=== PATIENT | male | born 1950 | race Hispanic/Latino ===

== ENCOUNTER 2016-07-07 10:32 | Emergency (ER) | payer MEDICARE ==
[2016-07-07 10:46] VITALS: BMI 25.0
[2016-07-07 10:49] VITALS: RESP 16
[2016-07-07] MEDS ORDERED: Sodium Chloride 0.9% 1,000 ML IV STA (11:25)
--- NOTE | 2016-07-07 11:25 | ED PDOC ---
Arrival/HPI - General Chief Complaint: Fever Time Seen by Provider: 07/07/16 11:12 Historian: Patient - History of Present Illness Narrative History of Present Illness (Text): 07/07/16 11:21 65 year old male presents to the emergency department with dry cough, subjective fever, and body aches for the past three days. No shortness of breath , chest pain, abdominal pain, nausea, vomiting. No other complaints at this time. PMD: Dr. Mandujano Time/Duration: < week (x 3 days) Symptom Onset: Gradual Symptom Course: Unchanged Modifying Factors (Text): None Associated Symptoms (Text): None Past Medical History - Provider Review Nursing Documentation Reviewed: Yes - Infectious Disease Hx of Infectious Diseases: None - Tetanus Immunization Tetanus Immunization: Unknown - Cardiac Hx Cardiac Disorders: Yes (VALVULAR HEART DSE.) Hx Hypertension: Yes - Pulmonary Hx Respiratory Disorders: No - Neurological Hx Neurological Disorder: No - HEENT Hx HEENT Disorder: No - Renal Hx Renal Disorder: No - Endocrine/Metabolic Hx Endocrine Disorders: No - Hematological/Oncological Hx Blood Disorders: No - Integumentary Hx Dermatological Disorder: No - Musculoskeletal/Rheumatological Hx Falls: No - Gastrointestinal Hx Gastrointestinal Disorders: Yes Hx Gastroesophageal Reflux: Yes - Genitourinary/Gynecological Hx Genitourinary Disorders: Yes Hx Urinary Tract Infection: Yes - Psychiatric Hx Psychophysiologic Disorder: Yes Hx Depression: Yes Hx Emotional Abuse: No Hx Physical Abuse: No Hx Substance Use: No - Past Surgical History Past Surgical History: Unable to Obtain - Suicidal Assessment Feels Threatened In Home Enviroment: No Family/Social History - Physician Review Nursing Documentation Reviewed: Yes Family/Social History: Unknown Family HX Smoking Status: Never Smoked Hx Alcohol Use: No Hx Substance Use: No Hx Substance Use Treatment: No Allergies/Home Meds Allergies/Adverse Reactions: Allergies No Known Allergies Allergy (Verified 07/07/16 10:46) Home Medications: Home Meds Medication Instructions Recorded Confirmed Bioflav,Lemon/Vit Bcomp,C 1 tab PO TID 07/07/16 07/07/16 [Lipo-Flavonoid Plus Caplet] Review of Systems - Physician Review All systems were reviewed & negative as marked: Yes Physical Exam - Physical Exam Narrative Physical Exam (Text): - Review of Systems Constitutional: Fevers (subjective) absent: Fatigue, Weight Change, Eyes: Normal ENT: Normal Respiratory: Cough absent: SOB, Sputum Cardiovascular: Normal absent: Chest pain, Palpitations, Syncope Gastrointestinal: Normal absent: Abdominal pain, Diarrhea, Nausea, Vomiting Genitourinary: Normal. absent: Dysuria, Frequency, Hematuria Musculoskeletal: Arthralgias absent: Back Pain, Neck Pain Skin: Normal Neurological: Normal absent: Focal Weakness Endocrine: Normal Hemo/Lymphatic: Normal Psychiatric: Normal - Physical exam Patient appears age appropriate, speaking full sentences without difficulty - Systems Exam Head: Present: Atraumatic, Normocephalic Pupils: Present: PERRL Extraocular Muscles: Present: EOMI Conjunctiva: Present: Normal Mouth: Present: Moist Mucous Membranes Neck: Present: Normal Range of Motion. No: MIDLINE TENDERNESS, Paraspinal Tenderness Respiratory/Chest: Present: Clear to Auscultation, Good Air Exchange. No: Respiratory Distress, Accessory Muscle Use, Tachypneic Cardiovascular: Present: Regular Rate and Rhythm, Normal S1, S2, Peripheral Pulses Present. No: Murmurs Abdomen: Present: Normal Bowel Sounds, No: Tenderness, Peritoneal Signs, Rebound, Guarding, Distention Back: Present: Normal Inspection. No: Midline Tenderness, Paraspinal Tenderness Upper Extremity: Present: Normal Inspection. No: Cyanosis, Edema Lower Extremity: Present: Normal Inspection. No: Edema Neurological: Present: GCS=15, Speech Normal, cranial nerves II through XII fully intact with no cerebellar abnormality, neuro-sensory fully intact. No focal neurological deficits. Skin: Present: Warm, Dry, Normal Color. No: Rashes Lymphatic: Present: OX3, NI, NC Psychiatric: Present: Alert, Oriented x 3, Normal Insight, Normal Concentration. Vital Signs Reviewed: Yes Vital Signs Temp Pulse Resp BP Pulse Ox 07/07/16 10:46 100.9 F H 87 16 122/75 97 Temperature: Afebrile Blood Pressure: Normal Pulse: Regular Respiratory Rate: Normal Appearance: Positive for: Well-Appearing, Non-Toxic, Comfortable Pain Distress: None Mental Status: Positive for: Alert and Oriented X 3 - Systems Exam Pharnyx: Present: Normal, Other (no pain with hyoid manipulation). No: ERYTHEMA , EXUDATE, TONSILS ENLARGED, Peritonsilar Swelling, Uvular Deviation, Muffled/ Hoarse Voice, Strider Neck: No: Meningeal Signs, MIDLINE TENDERNESS, Paraspinal Tenderness Medical Decision Making ED Course and Treatment: Impression: 65 year old male presents to the emergency department with dry cough , subjective fever, and body aches for the past 3 days. On physical exam, patient has no acute findings. Differential Diagnosis included but are not limited to: Influenza vs PNA Plan: -- Chest x-ray -- Tylenol -- IV fluids -- Labs -- Reassess and disposition Prior Visits: Notes and results from previous visits were reviewed. Patient was admitted on for pleuritic chest pain and had negative enzymes x 3. Progress Notes: 07/07/16 13:32 on reevaluation, pt states he feels better. Denies complaints. States he feels comfortable being dc'd home with outpatient f/u Influenza (+) - Lab Interpretations Lab Results: 07/07/16 11:15 07/07/16 11:15 Lab Results 07/07/16 13:00: Urine Color Yellow, Urine Appearance Clear, Urine pH 7.0, Ur Specific [place] 1.020, Urine Protein Negative, Urine Glucose (UA) Negative, Urine Ketones Trace H, Urine Blood Negative, Urine Nitrate Negative, Urine Bilirubin Negative, Urine Urobilinogen 0.2, Ur Leukocyte Esterase Negative 07/07/16 11:26: Influenza Typ A,B (EIA) Pos for influenza b H 07/07/16 11:15: WBC 4.5 D, RBC 4.69, Hgb 14.4, Hct 43.4, MCV 92.5, MCH 30.7, MCHC 33.2, RDW 12.7, Plt Count 183, MPV 10.4, Gran % 70.8 H, Lymph % (Auto) 16.6 L, [place] % (Auto) 12.4 H, Eos % (Auto) 0.0 L, Baso % (Auto) 0.2, Gran # 3.21 , Lymph # 0.8 L, [place] # 0.6, Eos # 0.0, Baso # 0.01, PT 11.6, INR 1.07, APTT 28.9, pO2 45, VBG pH 7.37, VBG pCO2 50.0, VBG HCO3 28.9 H, VBG Total CO2 30.4 H , VBG O2 Sat (Calc) 81.5 H, VBG Base Excess 2.7 H, VBG Potassium 4.9, Glucose 93 , Lactate 0.9, FiO2 21.0, Sodium 136.0, Potassium 4.1, Chloride 101.0, Carbon Dioxide 28, Anion Gap 13, BUN 11, Creatinine 1.0, Est GFR ( Amer) > 60, Est GFR (Non-Af Amer) > 60, Random Glucose 94, Calcium 9.1, Total Bilirubin 0.4 , AST 25, ALT 32, Alkaline Phosphatase 105, Total Protein 7.4, Albumin 4.3, Globulin 3.1, Albumin/Globulin Ratio 1.4, Venous Blood Potassium 4.9 - RAD Interpretation Radiology Orders: 07/07/16 11:25 CHEST PORTABLE [RAD] Stat - Medication Orders Current Medication Orders: Discontinued Medications Sodium Chloride (Sodium Chloride 0.9%) 1,000 mls @ 1,000 mls/hr IV .Q1H STA Stop: 07/07/16 12:24 Last Admin: 07/07/16 11:40 Dose: 1,000 MLS/HR eMAR Start Stop Document 07/07/16 11:40 SE (Rec: 07/07/16 11:40 SE [id number]) Intravenous Solution Start Date 07/07/16 Start Time 11:40 Ketorolac Tromethamine (Toradol) 15 mg IVP STAT STA Stop: 07/07/16 11:57 Last Admin: 07/07/16 12:25 Dose: 15 MG IVP Administration Document 07/07/16 12:25 SE (Rec: 07/07/16 12:25 SE [id number]) Charges for Administration # of IVP Administrations 1 - Scribe Statement The provider has reviewed the documentation as recorded by the Adam Ramírez Provider Scribe Attestation: All medical record entries made by the Adam were at my direction and personally dictated by me. I have reviewed the chart and agree that the record accurately reflects my personal performance of the history, physical exam, medical decision making, and the department course for this patient. I have also personally directed, reviewed, and agree with the discharge instructions and disposition. Disposition/Present on Arrival - Present on Arrival Any Indicators Present on Arrival: No History of DVT/PE: No History of Uncontrolled Diabetes: No Urinary Catheter: No History of Decub. Ulcer: No History Surgical Site Infection Following: None - Disposition Have Diagnosis and Disposition been Completed?: Yes Diagnosis: Influenza Disposition: HOME/ ROUTINE Disposition Time: 13:36 Patient Plan: Discharge Condition: GOOD Discharge Instructions (ExitCare): Influenza (ED) Additional Instructions: PLEASE FOLLOW UP WITH YOUR PRIMARY PHYSICIAN IN 1-2 DAYS RETURN TO THE ER RIGHT AWAY FOR NEW OR WORSENING PROBLEMS OR IF YOU CANNOT FOLLOW UP INSTRUCTED Prescriptions: Oseltamivir [Tamiflu] 75 mg PO BID #10 cap Forms: WORK NOTE
[2016-07-07 11:46] LABS: ADD MANUAL DIFF? NO
[2016-07-07 11:53] LABS: VENOUS BLOOD GAS BASE EXCESS 2.7 mmol/L (0.0-2.0); VENOUS BLOOD PH 7.37 (7.32-7.43)
[2016-07-07 11:59] LABS: BASO # 0.01 K/mm3 (0.0-2.0); BASO % 0.2 % (0.0-3.0); GRAN # 3.21 (1.4-6.5); GRAN % 70.8 % (50.0-68.0); HEMATOCRIT 43.4 % (42.0-52.0); LYMPH # 0.8 (1.2-3.4); LYMPH % 16.6 % (22.0-35.0); MEAN CELL VOLUME 92.5 fL (80.0-105.0); MEAN CORPUSCULAR HEMOGLOBIN 30.7 pg (25.0-35.0); MEAN CORPUSCULAR HGB CONC 33.2 g/dl (31.0-37.0); MEAN PLATELET VOLUME 10.4 fl (7.0-11.0); MONO # 0.6 (0.1-0.6); MONO % 12.4 % (1.0-6.0); PLATELET COUNT 183 10^3/uL (120.0-450.0); RED CELL DISTRIBUTION WIDTH 12.7 % (11.5-14.5); WHITE BLOOD COUNT 4.5 10^3/ul (4.5-11.0)
[2016-07-07 12:01] LABS: ALB/GLOB RATIO 1.4 (1.1-1.8); ALKALINE PHOSPHATASE 105 U/L (38-133); ALT/SGPT 32 U/L (7-56); AST/SGOT 25 U/L (15-59); BILIRUBIN,TOTAL 0.4 mg/dL (0.2-1.3); BLOOD UREA NITROGEN 11 mg/dL (7-21); CALCIUM 9.1 mg/dL (8.4-10.5); CARBON DIOXIDE 28 mmol/L (21-33); CHLORIDE 99 mmol/L (95-110); GFR AFRICAN-AMERICAN > 60; GLUCOSE,RANDOM 94 mg/dL (70-110); POTASSIUM 4.1 mmol/L (3.6-5.0); SODIUM 136 mmol/L (132-148); TOTAL PROTEIN 7.4 g/dL (5.8-8.3)
[2016-07-07 12:04] LABS: INR 1.07 (0.93-1.08); PARTIAL THROMBOPLASTIN TIME 28.9 Seconds (23.7-30.8)
--- NOTE | 2016-07-07 12:06 | RAD ---
HISTORY: Cough COMPARISON: 01/23/2014 FINDINGS: LUNGS: The lungs are hyperinflated and there is peribronchial thickening with chronic changes in both lungs. There is no focal consolidation. PLEURA: No significant pleural effusion identified, no pneumothorax apparent. CARDIOVASCULAR: The heart is normal in size. Atherosclerotic aortic arch calcifications are present. . OSSEOUS STRUCTURES: No significant abnormalities. VISUALIZED UPPER ABDOMEN: Normal. OTHER FINDINGS: None. IMPRESSION: COPD. No active pulmonary disease.
[2016-07-07 13:14] LABS: URINE BILIRUBIN NEGATIVE (NEGATIVE); URINE BLOOD NEGATIVE (NEGATIVE); URINE GLUCOSE (UA) NEGATIVE (NEGATIVE); URINE KETONE TRACE mg/dL (NEGATIVE); URINE LEUKOCYTE ESTERASE NEGATIVE Leu/uL (NEGATIVE); URINE PROTEIN NEGATIVE mg/dL (<30 mg/dL); URINE UROBILINOGEN 0.2 E.U./dL (<1 E.U./dL)
[2016-07-07 13:17] LABS: URINE APPEARANCE CLEAR (CLEAR); URINE COLOR YELLOW (YELLOW)
[2016-07-07 13:46] VITALS: BP 111/66; PULSE 85; O2SAT 98
[2016-07-07 13:49] VITALS: TEMP 98.3
== END 2016-07-07 14:02 | disposition home or self-care (01) ==
LOC: ED 10:32
DX: J11.1 Influenza due to unidentified influenza virus with other respiratory manifestations (principal)
CPT/HCPCS: 71010; 80053; 81003; 82803; 85025; 85610; 85730; 87040; 87086; 87804; 96374; 99284; J1885; J7040

== ENCOUNTER 2017-01-19 06:26 | Observation (INO) | payer MEDICARE ==
[2017-01-19] MEDS ORDERED: Lidocaine 2% Inj (20ml) ONE (06:52)
[2017-01-19] MEDS ORDERED: Iodixanol 320 MG/ML 100 ML BOTTLE IV ONE (06:53)
[2017-01-19] MEDS ORDERED: Phenylephrine 10 mg/ml Inj ONE (06:53)
[2017-01-19] MEDS ORDERED: Iodixanol 320 MG/ML 200 ML BOTTLE IV ONE (06:53)
[2017-01-19] MEDS ORDERED: Nitroglycerin 50mg in D5W 0 MG/0 ML BOTTLE IV ONE (06:53)
[2017-01-19] MEDS ORDERED: Iohexol 350mgl/ml 50 ML ONE (06:53)
[2017-01-19] MEDS ORDERED: Midazolam 2 MG/2 ML VIAL ONE ×3 (07:08→08:46)
[2017-01-19 07:27] LABS: BASO # 0.03 K/mm3 (0.0-2.0); BASO % 0.6 % (0.0-3.0); EOS # 0.1 (0.0-0.7); GRAN # 2.93 (1.4-6.5); GRAN % 59.3 % (50.0-68.0); HEMATOCRIT 41.6 % (42.0-52.0); LYMPH # 1.5 (1.2-3.4); LYMPH % 30.8 % (22.0-35.0); MEAN CELL VOLUME 92.7 fl (80.0-105.0); MEAN CORPUSCULAR HEMOGLOBIN 30.7 pg (25.0-35.0); MEAN CORPUSCULAR HGB CONC 33.2 g/dl (31.0-37.0); MEAN PLATELET VOLUME 10.4 fl (7.0-11.0); MONO # 0.4 (0.1-0.6); MONO % 8.3 % (1.0-6.0); RED CELL DISTRIBUTION WIDTH 12.5 % (11.5-14.5); WHITE BLOOD COUNT 4.9 10^3/ul (4.5-11.0)
[2017-01-19 07:38] LABS: BLOOD UREA NITROGEN 18 mg/dL (7-21); CALCIUM 8.9 mg/dL (8.4-10.5); CARBON DIOXIDE 30 mmol/L (21-33); CHLORIDE 104 mmol/L (98-107); CHOLESTEROL 214 mg/dL (130-200); GFR AFRICAN-AMERICAN > 60; GLUCOSE,RANDOM 92 mg/dL (70-110); POTASSIUM 3.9 mmol/L (3.6-5.0); SODIUM 142 mmol/L (132-148)
[2017-01-19 07:42] VITALS: BMI 24.6
[2017-01-19 07:45] LABS: INR 1.03 (0.93-1.08); PARTIAL THROMBOPLASTIN TIME 28.3 Seconds (23.7-30.8)
[2017-01-19] MEDS ORDERED: Eptifibatide 20 mg/10mL Inj IVP ONE (08:41)
[2017-01-19] MEDS ORDERED: Sodium Chloride 0.9% 1,000 ML IV SCH (09:30)
--- NOTE | 2017-01-19 10:33 | CP.PCM.HP ---
History of Present Illness - History of Present Illness History of Present Illness: 66 year old male with a PMH of valvular heart disease, carpal tunnel syndrome, arthritis, lower back pain, and tinnitus was found to have an abnormal stress test on 01/13/[address] Painter office during preoperative clearance for carpal tunnel surgery. He was electively catheterized this morning, found to have 80% stenosis in his LAD, and subsequently had a drug eluting stent placed. He states he feels a little dopey along with some numbness and tingling in his wrists bilaterally due to his carpal tunnel. He denies any SOB, CP, palpitations, abdominal pain, lightheadedness, dizziness, fever, chills, nausea , vomiting or any other complaints at this time. PMHx: arthritis in b/l ankles and b/l wrists, back pain w/ pinched nerve and swollen disk, carpal tunnel b/l, tinnitus, valvular heart disease since childhood Medications: Bioflavin; VitD 2000U SurgHx: throat surgery for snoring issues, does not recall when SocialHx: worked carrying heavy material for the [employer] denies tobacco, alcohol or drug use FamilyHx: Mother has CHF, hepatitis, and DM; Father had TB Allergies: NKDA Present on Admission - Present on Admission Any Indicators Present on Admission: No Review of Systems - Constitutional Constitutional: absent: Chills, Fever, Headache - EENT Eyes: absent: Change in Vision Nose/Mouth/Throat: absent: Nasal Discharge - Cardiovascular Cardiovascular: absent: Chest Pain, Dyspnea, Palpitations, Radiating Pain, Rapid Heart Rate - Respiratory Respiratory: absent: Cough, Dyspnea, Dyspnea on Exertion, Chest Congestion - Gastrointestinal Gastrointestinal: absent: Abdominal Pain, Bloating, Nausea - Genitourinary Genitourinary: absent: Difficulty Urinating - Musculoskeletal Musculoskeletal: Numbness - Integumentary Integumentary: absent: Rash, Sores - Neurological Additional comments: Right ear ringing Past Patient History - Infectious Disease Hx of Infectious Diseases: None - Tetanus Immunizations Tetanus Immunization: Unknown - Past Social History Smoking Status: Never Smoked - CARDIAC Hx Pacemaker: No - PULMONARY Hx Respiratory Disorders: No - NEUROLOGICAL Hx Paralysis: No - HEENT Hx HEENT Problems: No - RENAL Hx Chronic Kidney Disease: No - ENDOCRINE/METABOLIC Hx Endocrine Disorders: No - HEMATOLOGICAL/ONCOLOGICAL Hx Blood Transfusions: No - INTEGUMENTARY Hx Dermatological Problems: No - MUSCULOSKELETAL/RHEUMATOLOGICAL Hx Musculoskeletal Disorders: No - GASTROINTESTINAL Hx Gastrointestinal Disorders: Yes Hx Gastroesophageal Reflux: Yes - GENITOURINARY/GYNECOLOGICAL Hx Genitourinary Disorders: Yes Hx Urinary Tract Infection: Yes - PSYCHIATRIC Hx Emotional Abuse: No Hx Physical Abuse: No Hx Substance Use: No - SURGICAL HISTORY Hx Surgeries: Yes ("throat surgery") - ANESTHESIA Hx Anesthesia Reactions: No Meds Home Medications: Home Medication List Medication Instructions Recorded Confirmed Type Aspirin [Ecotrin] 81 mg PO DAILY #30 tabec 01/20/17 Rx Methylprednisolone [Medrol Dose See Taper PO DAILY 6 Days #21 mg 01/20/17 Rx Pack (21 tabs)] Prasugrel [Effient] 10 mg PO DAILY #30 tab 01/20/17 Rx Rosuvastatin Calcium [Crestor] 10 mg PO HS 30 Days #30 tab 01/20/17 Rx Allergies/Adverse Reactions: Allergies Allergy/AdvReac Type Severity Reaction Status Date / Time clopidogrel [From Plavix] Allergy RASH Verified 01/20/17 13:43 Physical Exam - Constitutional Appears: Non-toxic, No Acute Distress - Head Exam Head Exam: ATRAUMATIC, NORMAL INSPECTION, NORMOCEPHALIC - Eye Exam Eye Exam: EOMI, Normal appearance, PERRL - ENT Exam ENT Exam: Mucous Membranes Moist, Normal Exam - Neck Exam Neck exam: Positive for: Normal Inspection. Negative for: Lymphadenopathy, Thyromegaly - Respiratory Exam Respiratory Exam: Clear to Auscultation Bilateral, NORMAL BREATHING PATTERN - Cardiovascular Exam Cardiovascular Exam: REGULAR RHYTHM, +S1, +S2 - GI/Abdominal Exam GI & Abdominal Exam: Normal Bowel Sounds. absent: Distended - Extremities Exam Extremities exam: Positive for: pedal pulses present - Neurological Exam Neurological exam: Alert, Oriented x3 Results - Vital Signs Recent Vital Signs: Last Vital Signs Temp 98 F 01/19/17 09:21 Pulse 74 01/19/17 10:21 Resp 19 01/19/17 10:21 BP 129/76 01/19/17 10:21 Pulse Ox 98 01/19/17 07:20 - Labs Result Diagrams: 01/20/17 06:00 01/20/17 06:59 Labs: Laboratory Results - last 24 hr 01/19/17 01/19/17 01/19/17 07:22 07:22 07:22 WBC 4.9 RBC 4.49 Hgb 13.8 L Hct 41.6 L MCV 92.7 MCH 30.7 MCHC 33.2 RDW 12.5 Plt Count 211 MPV 10.4 Gran % 59.3 Lymph % (Auto) 30.8 [place] % (Auto) 8.3 H Eos % (Auto) 1.0 L Baso % (Auto) 0.6 Gran # 2.93 Lymph # 1.5 [place] # 0.4 Eos # 0.1 Baso # 0.03 PT 11.1 INR 1.03 APTT 28.3 Sodium 142 Potassium 3.9 Chloride 104 Carbon Dioxide 30 Anion Gap 12 BUN 18 Creatinine 1.0 Est GFR ( Amer) > 60 Est GFR (Non-Af Amer) > 60 Random Glucose 92 Calcium 8.9 Triglycerides 61 Cholesterol 214 H LDL Cholesterol Direct 135 H HDL Cholesterol 55 Blood Type Blood Type Confirm Antibody Screen BBK History Checked 01/19/17 01/19/17 07:22 07:56 WBC RBC Hgb Hct MCV MCH MCHC RDW Plt Count MPV Gran % Lymph % (Auto) [place] % (Auto) Eos % (Auto) Baso % (Auto) Gran # Lymph # [place] # Eos # Baso # PT INR APTT Sodium Potassium Chloride Carbon Dioxide Anion Gap BUN Creatinine Est GFR ( Amer) Est GFR (Non-Af Amer) Random Glucose Calcium Triglycerides Cholesterol LDL Cholesterol Direct HDL Cholesterol Blood Type A POSITIVE Blood Type Confirm A POSITIVE Antibody Screen Negative BBK History Checked No verified bt Assessment & Plan - Assessment and Plan (Free Text) Assessment: 66 year old male with a PMH of valvular heart disease, carpal tunnel syndrome, arthritis, lower back pain s/p cardiac cath with drug eluting stent placement in the LAD. Patient is being monitored. Plan: 1. Stent Placement - drug eluting stent LAD - BP: 110/70, patient stable, afebrile - EKG ordered, pending official read - continue to monitor vitals - Started on Plavix - started on Lipitor - Started on Aspirin - NS@100 - monitor distal pulses - started on heart healthy diet
--- NOTE | 2017-01-19 10:47 | CARDCATH ---
CARDIAC CATHETERIZATION AND PERCUTANEOUS TRANSLUMINAL CORONARY ANGIOPLASTY HISTORY: The patient is a 66-year-old male who suffers from hypertension and hypercholesterolemia who presents for preop clearance. He complains of stress test intermittently. A stress test revealed ischemic areas. Cardiac catheterization was recommended. PROCEDURE: Left heart catheterization with coronary arteriography and left ventriculogram followed by percutaneous transluminal coronary angioplasty and stent of an left anterior descending. The right femoral artery was cannulated with 6-[place] sheath. There were no complications. The findings on catheterization revealed a left ventricle that contracted normally. Estimated ejection fraction of 60%. The patient had a right dominant circulation. The RCA was selectively cannulized and found to be unremarkable. The left main artery was a short vessel and unremarkable. The circumflex artery and obtuse marginal branches revealed intimal irregularities without significant stenoses. The LAD was a long vessel that wrapped around the apex of the heart. The LAD revealed an eccentric 80% stenoses in the midportion at the takeoff of the diagonal vessel. This was best seen in the HENRIQUEZ caudal view. The diagonal vessels revealed intimal irregularities without significant stenoses. The patient was started on intravenous Angiomax and given two doses of IV Integrilin bolus. The guiding catheter was placed in the ostium of the left main artery and 0.014 ATW wire was used to cross the lesion. A 3.5 x 9 mm drug-eluting stent was placed and deployed at 14 atmospheres of pressure in the short coronary lesion. Repeat coronary arteriography revealed an excellent result with no residual stenosis in CHRISTEN-3 flow. The patient tolerated the procedure well. Angio-Seal was used to close the femoral artery site. In summary, the procedure was successful PTCA and stent of an eccentric 80% stenosis of the mid LAD. Cardiac catheterization revealed single-vessel CAD of the LAD. Normal LV function was noted. Given these findings, the patient will need to remain on aspirin indefinitely and Plavix for at least a year and undergo a strict cardiac risk-reduction program. Moody Gutierrez MD
--- NOTE | 2017-01-19 19:56 | CARD ---
APPROVED REPORT EKG Measurement Heart [id number] <Conclusion> Normal sinus rhythm Left axis deviation Nonspecific intraventricular conduction delay Abnormal ECG
[2017-01-19] MEDS ORDERED: DiphenhydrAMINE 50 mg/ml Inj IVP STA (20:15)
[2017-01-19] MEDS ORDERED: DiphenhydrAMINE 50 mg/ml Inj IVP PRN (23:16)
[2017-01-19] MEDS: Sodium Chloride 0.9% 1,000 ML IV SCH (23:59)
[2017-01-20] MEDS ORDERED: Sodium Chloride 0.9% 500 ML IV STA (00:15)
[2017-01-20 00:16] LABS: HEMATOCRIT 41.2 % (42.0-52.0); MEAN CORPUSCULAR HGB CONC 33.7 g/dl (31.0-37.0); MEAN PLATELET VOLUME 10.4 fl (7.0-11.0); RED CELL DISTRIBUTION WIDTH 12.6 % (11.5-14.5); WHITE BLOOD COUNT 11.7 10^3/ul (4.5-11.0)
[2017-01-20] MEDS ORDERED: Vancomycin 1gm in NS 250ml 1 GM/250 ML BAG IVPB STA (00:24)
[2017-01-20 00:27] LABS: ALB/GLOB RATIO 1.5 (1.1-1.8); ALKALINE PHOSPHATASE 89 U/L (38-126); ALT/SGPT 37 U/L (7-56); AST/SGOT 21 U/L (17-59); BILIRUBIN,TOTAL 0.9 mg/dL (0.2-1.3); BLOOD UREA NITROGEN 18 mg/dL (7-21); CALCIUM 8.7 mg/dL (8.4-10.5); CARBON DIOXIDE 27 mmol/L (21-33); CHLORIDE 106 mmol/L (95-110); GFR AFRICAN-AMERICAN > 60; GLUCOSE,RANDOM 105 mg/dL (70-110); POTASSIUM 3.8 mmol/L (3.6-5.0); SODIUM 137 mmol/L (132-148); TOTAL PROTEIN 5.7 g/dL (5.8-8.3)
--- NOTE | 2017-01-20 00:46 | CP.PCM.CON ---
History of Present Illness - History of Present Illness History of Present Illness: ICU Consult Note for Mukesh Sanchez PGY2 Reason for consult: Allergic reaction This is a 66Y M with PMH arthritis, carpal tunnel, spinal stenosis, valvular heart disease (since childhood) who was admitted for elective cardiac cath. Patient had drug eluting stent placed in LAD this am without complications. EF was noted to be 60%. About 12 hours after the cardiac cath, patient developed diffuse rash and fever of 101.0. Patient was given Motrin and Benadryl. Rapid response was later called for BP of 99/61. Patient was awake and alert. He was speaking full sentences at time of examination. He denies CP, SOB, wheezing, swelling of tongue, trouble swallowing, chills, diarrhea, numbness/tingling or vision changes. Patient reports that he did feel nauseous and was itchy from the rash. Repeat BP was 106/70. PMH: arthritis, carpal tunnel, spinal stenosis, valvular heart disease (since childhood) PSH: throat surgery Home meds: As per MAR All: Tylenol? SH: Denies EtOH, drug or tobacco use Review of Systems - Review of Systems All systems: reviewed and no additional remarkable complaints except Review of Systems: + rash, fever and nausea Past Patient History - Infectious Disease Hx of Infectious Diseases: None - Tetanus Immunizations Tetanus Immunization: Unknown - Past Social History Smoking Status: Never Smoked Alcohol: None Drugs: Denies - CARDIAC Hx Pacemaker: No - PULMONARY Hx Respiratory Disorders: No - NEUROLOGICAL Hx Paralysis: No - HEENT Hx HEENT Problems: No - RENAL Hx Chronic Kidney Disease: No - ENDOCRINE/METABOLIC Hx Endocrine Disorders: No - HEMATOLOGICAL/ONCOLOGICAL Hx Blood Transfusions: No - INTEGUMENTARY Hx Dermatological Problems: No - MUSCULOSKELETAL/RHEUMATOLOGICAL Hx Musculoskeletal Disorders: No - GASTROINTESTINAL Hx Gastrointestinal Disorders: Yes Hx Gastroesophageal Reflux: Yes - GENITOURINARY/GYNECOLOGICAL Hx Genitourinary Disorders: Yes Hx Urinary Tract Infection: Yes - PSYCHIATRIC Hx Emotional Abuse: No Hx Physical Abuse: No Hx Substance Use: No - SURGICAL HISTORY Hx Surgeries: Yes ("throat surgery") - ANESTHESIA Hx Anesthesia Reactions: No Meds Allergies/Adverse Reactions: Allergies Allergy/AdvReac Type Severity Reaction Status Date / Time No Known Allergies Allergy Verified 07/07/16 10:46 - Medications Medications: Current Medications Aspirin (Ecotrin) 81 mg PO DAILY [facility] Last Admin: 01/19/17 09:44 Dose: Not Given Atorvastatin Calcium (Lipitor) 40 mg PO DIN [facility] Last Admin: 01/19/17 17:58 Dose: 40 mg Clopidogrel Bisulfate (Plavix) 75 mg PO DAILY [facility] Last Admin: 01/19/17 09:44 Dose: Not Given Diphenhydramine HCl (Benadryl) 50 mg IVP Q4H PRN PRN Reason: Allergy symptoms Last Admin: 01/20/17 00:25 Dose: 50 mg Sodium Chloride (Sodium Chloride 0.9%) 1,000 mls @ 125 mls/hr IV .Q8H [facility] Last Admin: 01/19/17 23:59 Dose: 125 mls/hr Sodium Chloride (Sodium Chloride 0.9%) 500 mls @ 999 mls/hr IV .Q31M [facility] Stop: 01/20/17 00:45 Last Admin: 01/20/17 00:10 Dose: 999 mls/hr Vancomycin HCl (Vancomycin 1gm) 1 gm in 250 mls @ 167 mls/hr IVPB STAT STA PRN Reason: Protocol Stop: 01/20/17 01:53 Ibuprofen (Motrin Tab) 400 mg PO Q6H PRN PRN Reason: Fever >100.4 F Physical Exam - Constitutional Appears: No Acute Distress - Head Exam Head Exam: ATRAUMATIC, NORMAL INSPECTION, NORMOCEPHALIC - Eye Exam Eye Exam: Normal appearance, PERRL Pupil Exam: NORMAL ACCOMODATION, PERRL - ENT Exam ENT Exam: Mucous Membranes Moist - Respiratory Exam Respiratory Exam: Clear to Auscultation Bilateral, NORMAL BREATHING PATTERN. absent: Rales, Rhonchi, Wheezes - Cardiovascular Exam Cardiovascular Exam: REGULAR RHYTHM, +S1, +S2. absent: Gallop, Rubs, Systolic Murmur - GI/Abdominal Exam GI & Abdominal Exam: Normal Bowel Sounds, Soft. absent: Rebound, Rigid, Tenderness - Extremities Exam Extremities exam: Positive for: normal inspection. Negative for: calf tenderness, pedal edema Additional comments: R femoral cath site clean and dry- no hematoma or bleeding noted - Neurological Exam Neurological exam: Alert, CN II-XII Intact, Oriented x3 - Psychiatric Exam Psychiatric exam: Normal Affect, Normal Mood - Skin Skin Exam: Dry, Rash (diffuse), Warm Results - Vital Signs Recent Vital Signs: Last Vital Signs Temp 101.8 F H 01/19/17 23:58 Pulse 100 H 01/19/17 18:00 Resp 17 01/19/17 15:06 BP 122/71 01/19/17 15:06 Pulse Ox 98 01/19/17 07:20 - Labs Result Diagrams: 01/19/17 23:45 01/19/17 07:22 Labs: Laboratory Results - last 24 hr 01/19/17 01/19/17 01/19/17 07:22 07:22 07:22 WBC 4.9 RBC 4.49 Hgb 13.8 L Hct 41.6 L MCV 92.7 MCH 30.7 MCHC 33.2 RDW 12.5 Plt Count 211 MPV 10.4 Gran % 59.3 Lymph % (Auto) 30.8 [place] % (Auto) 8.3 H Eos % (Auto) 1.0 L Baso % (Auto) 0.6 Gran # 2.93 Lymph # 1.5 [place] # 0.4 Eos # 0.1 Baso # 0.03 PT 11.1 INR 1.03 APTT 28.3 Sodium 142 Potassium 3.9 Chloride 104 Carbon Dioxide 30 Anion Gap 12 BUN 18 Creatinine 1.0 Est GFR ( Amer) > 60 Est GFR (Non-Af Amer) > 60 Random Glucose 92 Calcium 8.9 Triglycerides 61 Cholesterol 214 H LDL Cholesterol Direct 135 H HDL Cholesterol 55 Blood Type Blood Type Confirm Antibody Screen BBK History Checked 01/19/17 01/19/17 01/19/17 07:22 07:56 23:45 WBC 11.7 H D RBC 4.48 Hgb 13.9 L Hct 41.2 L MCV 92.0 MCH 31.0 MCHC 33.7 RDW 12.6 Plt Count 193 MPV 10.4 Gran % Lymph % (Auto) [place] % (Auto) Eos % (Auto) Baso % (Auto) Gran # Lymph # [place] # Eos # Baso # PT INR APTT Sodium Potassium Chloride Carbon Dioxide Anion Gap BUN Creatinine Est GFR ( Amer) Est GFR (Non-Af Amer) Random Glucose Calcium Triglycerides Cholesterol LDL Cholesterol Direct HDL Cholesterol Blood Type A POSITIVE Blood Type Confirm A POSITIVE Antibody Screen Negative BBK History Checked No verified bt Assessment & Plan - Assessment and Plan (Free Text) Assessment: This is a 66Y M with PMH arthritis, carpal tunnel, spinal stenosis, valvular heart disease (since childhood) who was admitted for elective cardiac cath. Patient had drug eluting stent placed in LAD this am without complications. EF was noted to be 60%. ICU was consulted for possible contrast induced allergic reaction. Rash and fever can be secondary to delayed hypersensitivity reaction. Patient is comfortable on NC without wheezing or signs of respiratory distress. Plan: Neuro: Patient awake and alert A&O x 3 CV: Pt HD stable at this time NS 500ml bolus then NS@125 Continue to monitor BP Continue to monitor cath site Continue ASA, Lipitor, Plavix Resp: Solumedrol 125mg given once Continue supplemental O2 (Nasal cannula) Maintain spO2>90% GI: Zofran prn nausea Heme: Cath site clean and dry- no overt signs of bleeding Hgb stable Nephro: Will continue hydration No change noted in Creatinine after contrast Continue to monitor electrolytes and will replace as needed ID: Fever, mild leukocytosis Motrin prn fever Blood cultures sent Pt given one dose Vancomycin Endo: Maintain euglycemia Patient is hemodynamically stable at this time. Will continue to monitor patient on telemetry floor. Case seen, reviewed and discussed with Dr. Lino. Mukesh Day PGY2 - Date & Time Date: 01/20/17 Time: 01:00
--- NOTE | 2017-01-20 01:38 | PCM.RRT ---
CORE WINDER Nurse Assessment - Situation Date: 01/20/17 Time CORE WINDER was called: 00:00 CORE WINDER Responder Arrival Time: 00:04 CORE WINDER Location:: [address] [place] [address] Room Number: [id number] CORE WINDER Reason for Call: Hypotension, Change in Mental Status, Looks Sicker CORE WINDER Called By: RN - IV IV Inserted during CORE WINDER?: No IV Fluids Initiated During CORE WINDER?: 0.9%NS 500cc bolus - Respiratory Oxygen Delivery Method: Nasal Cannula @L/min Oxygen Flow Rate: 2 Received Nebulizer Treatments:: No Was the Patient Ventilated with Bag/Mask 100% O2?: No Secretions Suctioned?: No Was the Patient Intubated?: No Was the Patient Placed on a Ventilator?: No - Medication Medications Administered During CORE WINDER: Zofran 4mg IVP, Benadryl 50 mg IVP, Vancomycin 1G IV - Diagnostic Test Ordered EKG: Yes Chest X-Ray: No CT Scan: No - Stat Labs Ordered CORE WINDER Stat Labs Ordered: BLOOD C&S X2 CPR started during CORE WINDER?: No - Vital Signs Vital Sign: Rapid Response Vital Sign Blood Pressure 99/61 Pulse Rate 89 Respiratory Rate 20 Temperature 101.8 F Oxygen Saturation 94 - Sepsis Screen Part 1 Sepsis Screen Part 1: Hypotensive, Temperature over 100.6F - Time CORE WINDER Ended Time CORE WINDER Ended: 00:25 - Vital Signs at end of CORE WINDER Vital Signs at end of CORE WINDER: Rapid Response End Vital Sign Blood Pressure 106/65 Pulse Rate 100 Respiratory Rate 18 O2 Sat by Pulse Oximetry 98 I.Reason for CORE WINDER - A) Acute Change in Patient: Subjective: Pt is a 66 yo male s/p cardiac catherization with SUKH placed POD #0. Around 8 pm , pt began complaining of subjective fevers and diffuse body rash. Pt denied any other symptoms at that time. Pt was given IV benadryl, which resulted in minimal resolution of symptoms. Around 11 pm, pt had temperature of 101 F at which time he was given PO motrin. Pt denied any SOB at the time. IVF, IV solu- medrol, and prn IV bendryl was also ordered at that time. However, per nursing, pt began to have near syncopal events with a temp of 101 F, BP of 99/61, diffuse body rash, and chills. Thus, at 12:04 am CORE WINDER was called. On response, pt was AOx3, appeared to have decreased body rash, and was normotensive while recieving IVF bolus. Blood glucose was WNL. Pt was febrile. Pt denied CP, SOB, n /v, abdominal pain, pruritis. Pt given Vancomycin, Benadryl, and Solu-medrol at bedside. Stat CBC and CMP were ordered. ICU was consulted for possible post cardiac catherization hypersensitivity due to IV contrast. It was determined that patient was stable enough to stay on telemetry, but will be monitored closely. - Respiratory Oxygen Delivery Method: Nasal Cannula @L/min Oxygen Flow Rate: 2 - Constitutional Appears: No Acute Distress - Head Head Exam: ATRAUMATIC, NORMOCEPHALIC - Eyes Eye Exam: EOMI, PERRL - Respiratory Exam Respiratory Exam: Clear to Ausculation Bilateral. absent: Rales, Rhonchi, Wheezes - Cardiovascular Exam Cardiovascular Exam: RRR, +S1, +S2. absent: Gallop, Rubs, Murmur - GI/Abdominal Exam GI & Abdominal Exam: Soft. absent: Distended, Guarding, Tenderness, Organomegaly, Rebound - Neurological Exam Neurological Exam: Alert, Awake, Oriented x3 - Extremities Exam Additional comments: Diffuse macular rash Plan - Assessment of Findings&Treatment Plan 1. Delayed hypersensitivity 2/2 IV contrast from cardiac cath - IV solu-medrol - IV benadryl - IV Vancomycin - PO motrin - IVF bolus followed by 125 ml/hr - EKG NSR - ICU consult: will hold on tele and monitor vitals closely, if pt worsens will consider ICU admission - F/u CBC and CMP, blood culture
[2017-01-20 06:17] VITALS: O2SAT 94
[2017-01-20 07:17] LABS: GRAN % 97.4 % (50.0-68.0); HEMATOCRIT 40.8 % (42.0-52.0); LYMPH # 0.4 (1.2-3.4); LYMPH % 2.2 % (22.0-35.0); MEAN CELL VOLUME 92.3 fl (80.0-105.0); MEAN CORPUSCULAR HEMOGLOBIN 30.5 pg (25.0-35.0); MEAN CORPUSCULAR HGB CONC 33.1 g/dl (31.0-37.0); MEAN PLATELET VOLUME 10.5 fl (7.0-11.0); MONO # 0.1 (0.1-0.6); MONO % 0.4 % (1.0-6.0); PLATELET COUNT 192 10^3/uL (120.0-450.0); RED CELL DISTRIBUTION WIDTH 12.5 % (11.5-14.5); WHITE BLOOD COUNT 16.1 10^3/ul (4.5-11.0)
[2017-01-20 07:20] LABS: BLOOD UREA NITROGEN 15 mg/dL (7-21); CALCIUM 8.2 mg/dL (8.4-10.5); CARBON DIOXIDE 24 mmol/L (21-33); CHLORIDE 107 mmol/L (98-107); GFR AFRICAN-AMERICAN > 60; GLUCOSE,RANDOM 160 mg/dL (70-110); SODIUM 139 mmol/L (132-148)
[2017-01-20] MEDS: Sodium Chloride 0.9% 1,000 ML IV SCH (07:31)
[2017-01-20 09:05] LABS: ANISOCYTOSIS SLIGHT; NEUTROPHIL 96 % (50.0-70.0); PLATELET ESTIMATE NORMAL (NORMAL); TOXIC GRANULATION SLIGHT
[2017-01-20] MEDS ORDERED: MethylPREDNISolone 40 mg Vial IM STA (09:38)
--- NOTE | 2017-01-20 09:46 | RAD ---
HISTORY: fever/wbc COMPARISON: 07/07/2016 FINDINGS: LUNGS: No active pulmonary disease. PLEURA: No significant pleural effusion identified, no pneumothorax apparent. CARDIOVASCULAR: Normal. OSSEOUS STRUCTURES: No significant abnormalities. VISUALIZED UPPER ABDOMEN: Normal. OTHER FINDINGS: None. IMPRESSION: No active disease.
--- NOTE | 2017-01-20 10:07 | CP.PCM.PN ---
Subjective - Date & Time of Evaluation Date of Evaluation: 01/20/17 Time of Evaluation: 11:09 - Subjective Subjective: Patient was seen and examined bedside. Patient was up and walking around. Patient was talking about the fever/ allergic reaction he had brick dropper, but stated the fever went away. He says he still has the diffuse rash and was a little itchy, but improving. He denied any CP, SOB, tongue or lip swelling, sore throat, abdominal pain, or any other complaints. Objective - Vital Signs/Intake and Output Vital Signs (last 24 hours): Temp Pulse Resp BP Pulse Ox 98.7 F 56 L 20 121/70 94 L 01/20/17 06:00 01/20/17 06:00 01/20/17 06:00 01/20/17 06:00 01/20/17 06:00 - Medications Medications: Current Medications Aspirin (Ecotrin) 81 mg PO DAILY [facility] Last Admin: 01/19/17 09:44 Dose: Not Given Diphenhydramine HCl (Benadryl) 50 mg IVP Q4H PRN PRN Reason: Allergy symptoms Last Admin: 01/20/17 00:25 Dose: 50 mg Diphenhydramine HCl (Benadryl) 25 mg PO HS PRN PRN Reason: Insomnia Sodium Chloride (Sodium Chloride 0.9%) 1,000 mls @ 125 mls/hr IV .Q8H [facility] Last Admin: 01/20/17 07:31 Dose: 125 mls/hr Loratadine (Claritin) 10 mg PO DAILY [facility] Methylprednisolone (Solu-Medrol) 40 mg IM ONCE ONE Stop: 01/20/17 16:01 Prasugrel (Effient) 10 mg PO DAILY [facility] - Labs Labs: 01/20/17 06:00 01/20/17 06:59 PT 11.1 Seconds (9.9-11.8) 01/19/17 07:22 INR 1.03 (0.93-1.08) 01/19/17 07:22 APTT 28.3 Seconds (23.7-30.8) 01/19/17 07:22 - Constitutional Appears: Non-toxic, No Acute Distress - Head Exam Head Exam: ATRAUMATIC, NORMAL INSPECTION, NORMOCEPHALIC - Eye Exam Eye Exam: EOMI, Normal appearance, PERRL - ENT Exam ENT Exam: Mucous Membranes Moist - Neck Exam Neck Exam: Normal Inspection - Respiratory Exam Respiratory Exam: Clear to Ausculation Bilateral, NORMAL BREATHING PATTERN - Cardiovascular Exam Cardiovascular Exam: REGULAR RHYTHM, +S1, +S2 - GI/Abdominal Exam GI & Abdominal Exam: absent: Tenderness - Extremities Exam Extremities Exam: Full ROM, Normal Capillary Refill. absent: Pedal Edema - Back Exam Back Exam: rash noted Additional comments: diffuse slightly erythemetous rash - Neurological Exam Neurological Exam: Alert, Awake, Oriented x3 - Psychiatric Exam Psychiatric exam: Normal Affect, Normal Mood - Skin Skin Exam: Rash Assessment and Plan - Assessment and Plan (Free Text) Assessment: 66 year old male with a PMH of valvular heart disease, carpal tunnel syndrome, arthritis, lower back pain s/p cardiac cath day 1 with drug eluting stent placement in the LAD. Patient is being monitored postop and treated for possible allergic reaction. Plan: Plan: 1. Stent Placement - drug eluting stent LAD - BP: 127/76, patient stable, afebrile - EKG ordered, pending official read - continue to monitor vitals - stopped Plavix, started on effient - stopped Lipitor - continue Aspirin - NS@100 - monitor distal pulses - started on heart healthy diet 2. Allergic reaction 2/2 possible contrast from cardiac cath vs drug-induced - pt hemodynamically stable now, afebrile - pt given solumedrol, Benadryl -continue solumedrol -started cetirizine 10mg PO daily; checked QTc: 467 -continue Benadryl qhs -stopped Plavix, started on effient -stopped atorvastatin -stopped ibuprofen
[2017-01-20] MEDS ORDERED: MethylPREDNISolone 40 mg Vial IVP STA ×2 (10:14→13:44)
[2017-01-20 12:33] VITALS: BP 123/81; PULSE 101; RESP 20; TEMP 98.4
--- NOTE | 2017-01-20 13:55 | PN ---
DATE: 01/20/2017 CARDIOLOGY FOLLOWUP NOTE SUBJECTIVE: The above events noted. OBJECTIVE: VITAL SIGNS: Blood pressure 123/81, heart rate is in 70s. NECK: Negative JVD. LUNGS: Without rales. HEART: Reveals S1 and S2. EXTREMITIES: Without edema. LABORATORY DATA: Hemoglobin is 13.5. Chemistries are unremarkable. IMPRESSION: 1. Stable post percutaneous transluminal coronary angioplasty and stent of left anterior descending. 2. Coronary artery disease. 3. Hypercholesterolemia. 4. Hypertension. 5. Allergic reaction, likely due to Plavix. Given these findings, the patient was treated with antihistamines as well as steroids. The Plavix was changed to Effient appropriately. Moody Gutierrez MD
--- NOTE | 2017-01-20 13:57 | CP.PCM.DIS ---
Provider - Provider Date of Admission: 01/20/17 09:35 Attending physician: Yehuda Turner MD Primary care physician: Tereso Mandujano MD Consults: Cardio: Matt Time Spent in preparation of Discharge (in minutes): 70 Hospital Course - Lab Results Lab Results: Most Recent Lab Values WBC 16.1 10^3/ul (4.5-11.0) H D 01/20/17 06:00 RBC 4.42 10^6/uL (3.5-6.1) 01/20/17 06:00 Hgb 13.5 g/dL (14.0-18.0) L 01/20/17 06:00 Hct 40.8 % (42.0-52.0) L 01/20/17 06:00 MCV 92.3 fl (80.0-105.0) 01/20/17 06:00 MCH 30.5 pg (25.0-35.0) 01/20/17 06:00 MCHC 33.1 g/dl (31.0-37.0) 01/20/17 06:00 RDW 12.5 % (11.5-14.5) 01/20/17 06:00 Plt Count 192 10^3/uL (120.0-450.0) 01/20/17 06:00 MPV 10.5 fl (7.0-11.0) 01/20/17 06:00 Gran % 97.4 % (50.0-68.0) H 01/20/17 06:00 Lymph % (Auto) 2.2 % (22.0-35.0) L 01/20/17 06:00 [place] % (Auto) 0.4 % (1.0-6.0) L 01/20/17 06:00 Eos % (Auto) 0.0 % (1.5-5.0) L 01/20/17 06:00 Baso % (Auto) 0.0 % (0.0-3.0) 01/20/17 06:00 Gran # 15.70 (1.4-6.5) H 01/20/17 06:00 Lymph # 0.4 (1.2-3.4) L 01/20/17 06:00 [place] # 0.1 (0.1-0.6) 01/20/17 06:00 Eos # 0.0 (0.0-0.7) 01/20/17 06:00 Baso # 0.00 K/mm3 (0.0-2.0) 01/20/17 06:00 Neutrophils % (Manual) 96 % (50.0-70.0) H 01/20/17 06:00 Lymphocytes % (Manual) 3 % (22.0-35.0) L 01/20/17 06:00 Monocytes % (Manual) 1 % (1.0-6.0) 01/20/17 06:00 Toxic Granulation Slight 01/20/17 06:00 Platelet Evaluation Normal (NORMAL) 01/20/17 06:00 Anisocytosis (manual) Slight 01/20/17 06:00 PT 11.1 Seconds (9.9-11.8) 01/19/17 07:22 INR 1.03 (0.93-1.08) 01/19/17 07:22 APTT 28.3 Seconds (23.7-30.8) 01/19/17 07:22 Sodium 139 mmol/L (132-148) 01/20/17 06:59 Potassium 4.0 mmol/L (3.6-5.0) 01/20/17 06:59 Chloride 107 mmol/L (98-107) 01/20/17 06:59 Carbon Dioxide 24 mmol/L (21-33) 01/20/17 06:59 Anion Gap 12 (10-20) 01/20/17 06:59 BUN 15 mg/dL (7-21) 01/20/17 06:59 Creatinine 0.9 mg/dL (0.8-1.5) 01/20/17 06:59 Est GFR ( Amer) > 60 01/20/17 06:59 Est GFR (Non-Af Amer) > 60 01/20/17 06:59 Random Glucose 160 mg/dL (70-110) H 01/20/17 06:59 Calcium 8.2 mg/dL (8.4-10.5) L 01/20/17 06:59 Total Bilirubin 0.9 mg/dL (0.2-1.3) 01/19/17 23:45 AST 21 U/L (17-59) 01/19/17 23:45 ALT 37 U/L (7-56) 01/19/17 23:45 Alkaline Phosphatase 89 U/L (38-126) 01/19/17 23:45 Total Protein 5.7 g/dL (5.8-8.3) L 01/19/17 23:45 Albumin 3.4 g/dL (3.0-4.8) 01/19/17 23:45 Globulin 2.2 gm/dL 01/19/17 23:45 Albumin/Globulin Ratio 1.5 (1.1-1.8) 01/19/17 23:45 Triglycerides 61 mg/dL (35-160) 01/19/17 07:22 Cholesterol 214 mg/dL (130-200) H 01/19/17 07:22 LDL Cholesterol Direct 135 mg/dL (0-129) H 01/19/17:22 HDL Cholesterol 55 mg/dL (29-60) 01/19/17:22 Blood Type A POSITIVE 01/19/17:22 Blood Type Confirm A POSITIVE 01/19/17 07:56 Antibody Screen Negative 01/19/17:22 BBK History Checked No verified bt 01/19/17 07:22 - Hospital Course Hospital Course: 66 year old male with a PMHx of valvular heart disease, carpal tunnel syndrome, arthritis, lower back pain and tinnitus was found to have an abnormal stress test on 01/13/[address] Gutierrez's office during preoperative clearance for carpal tunnel surgery. He was recommended for cardiac cath 01/19/2017 and found to have 80% stenosis in his LAD, which was subsequently stented with a drug eluting stent. Postop, he was feeling "a little dopey" with some numbness and tingling in his wrists bilaterally 2/2 carpal tunnel. Otherwise, he denied CP, SOB, lightheadedness, palpitations, dizziness, abd pain, fever, chills, nausea, vomiting. Around 8 pm, an CIVIL TECHNICIAN was called due to patient began complaining of subjective fevers and diffuse body rash 2/2 possible delayed hypersensitivity from contrast from cardiac cath. He was started on solumedrol, Benadryl, and Claritin. On 01/20/2017, pt was feeling better, walking, and eating. There was still nonpuritic diffuse macular rash on chest and back. Patient was discharged to home to continue Crestor, Effient, and continue the steroid course. Patient was told to follow up with Dr. Turner and Dr. Gutierrez in one week. Discharge Exam - Head Exam Head Exam: ATRAUMATIC, NORMOCEPHALIC Discharge Plan - Discharge Medications Prescriptions: Aspirin [Ecotrin] 81 mg PO DAILY #30 tabec Methylprednisolone [Medrol Dose Pack (21 tabs)] See Taper PO DAILY 6 Days #21 mg Prasugrel [Effient] 10 mg PO DAILY #30 tab Rosuvastatin Calcium [Crestor] 10 mg PO HS 30 Days #30 tab - Follow Up Plan Condition: GOOD Disposition: HOME/ ROUTINE Instructions: Prasugrel (By mouth), Heart Healthy Diet (GEN), Cholesterol and Your Health (GEN), Skin Tear (GEN), Coronary Intravascular Stent Placement (GEN) , Coronary Angioplasty (GEN) Additional Instructions: Crestor 10mg PO once a day for 30 days Effient 10mg PO once a day for 30 days Zyrtec daily at night Medrol Dose [place] for 6 days Please follow up with Dr. Turner and Dr. Gutierrez in a week. Wash two skin tears , located at right groin - above site of entry for cardiac catherization, with soap and water and pat dry. Please follow the post cardiac catherization and interventional procedure discharge instructions. Referrals: Tereso Mandujano MD [Primary Care Provider] -
[2017-01-20] MEDS ORDERED: MethylPREDNISolone 40 mg Vial IVP ONE (16:00)
[2017-01-20] MEDS ORDERED: MethylPREDNISolone 40 mg Vial IM ONE (16:00)
--- NOTE | 2017-01-20 22:12 | CARD ---
APPROVED REPORT EKG Measurement Heart [id number] <Conclusion> Sinus tachycardia Left anterior fascicular block Abnormal ECG
--- NOTE | 2017-01-20 22:16 | CARD ---
APPROVED REPORT EKG Measurement Heart [id number] [place] [id number] <Conclusion> Normal sinus rhythm Left axis deviation Abnormal ECG
--- NOTE | 2017-01-21 13:26 | CARD ---
APPROVED REPORT EKG Measurement Heart [id number] [place] [id number] <Conclusion> Normal sinus rhythm Left anterior fascicular block Abnormal ECG
== END 2017-01-20 15:26 | disposition home or self-care (01) ==
LOC: CATH 06:26 → 2RSO 09:16 → UNDOADMOB 01-20 09:35 → CATH 01-20 09:35 → 2RSO 01-20 09:35 → UNDODISOB 01-20 15:26
PROVIDERS: ADMIT Internal Medicine; ATTEND Internal Medicine
DX: I25.10 Atherosclerotic heart disease of native coronary artery without angina pectoris (principal); I10 Essential (primary) hypertension; G56.03 Carpal tunnel syndrome, bilateral upper limbs; E78.00 Pure hypercholesterolemia, unspecified; M48.00 Spinal stenosis, site unspecified; R21 Rash and other nonspecific skin eruption; K21.9 Gastro-esophageal reflux disease without esophagitis; M54.5 Low back pain; M19.071 Primary osteoarthritis, right ankle and foot; M19.072 Primary osteoarthritis, left ankle and foot; M19.031 Primary osteoarthritis, right wrist; M19.032 Primary osteoarthritis, left wrist; H93.19 Tinnitus, unspecified ear; Z82.49 Family history of ischemic heart disease and other diseases of the circulatory system; Z83.3 Family history of diabetes mellitus
CPT/HCPCS: 36415; 71010; 80048; 80053; 80061; 82948; 85025; 85027; 85610; 85730; 86850; 86900; 87040; 93005; 93458; 99152; 99153; C1760; C1769; C1874; C1887; C2629; C9600; G0378; J0583; J1200; J1327; J1644; J2250; J2405; J2920; J2930; J3010; J7040; Q9967

== ENCOUNTER 2018-02-01 14:24 | Inpatient (IN) | payer MEDICARE, OTHER ==
--- NOTE | 2018-02-01 14:54 | ED PDOC ---
Arrival/HPI - General Time Seen by Provider: 02/01/18 14:53 Historian: Patient - History of Present Illness Narrative History of Present Illness (Text): 02/01/18 16:02 A 67 year old male, whose past medical history includes cardia stent (placed by Dr. Gutierrez 2016), tinnitus, ear ringing, presents to the emergency department complaining of shortness of breath and dizziness. Patient reports whenever he bends over, begins experiencing symptoms, along with experiencing near-syncope, however has never had a syncopal episode. States also currently experiencing ringing in both ears, which takes medication for. Notes the ear ringing varies each day and normally can hear better in the left ear than the right ear. Patient denies fever, chills, chest pain/tightness, headache, neck pain, weakness, visual changes, or any other complaints at this time. PMD: Dr. Juana Guerra Past Medical History - Provider Review Nursing Documentation Reviewed: Yes - Infectious Disease Hx of Infectious Diseases: None - Tetanus Immunization Tetanus Immunization: Unknown - Cardiac Hx Pacemaker: No - Pulmonary Hx Respiratory Disorders: No - Neurological Hx Paralysis: No - HEENT Hx HEENT Disorder: No - Renal Hx Renal Disorder: No - Endocrine/Metabolic Hx Endocrine Disorders: No - Hematological/Oncological Hx Blood Transfusions: No - Integumentary Hx Dermatological Disorder: No - Musculoskeletal/Rheumatological Hx Musculoskeletal Disorders: No - Gastrointestinal Hx Gastrointestinal Disorders: Yes Hx Gastroesophageal Reflux: Yes - Genitourinary/Gynecological Hx Genitourinary Disorders: Yes Hx Urinary Tract Infection: Yes - Psychiatric Hx Emotional Abuse: No Hx Physical Abuse: No Hx Substance Use: No - Past Surgical History Past Surgical History: Unable to Obtain - Surgical History Hx Cardiac Catheterization: Yes (1 stent 01/19/17) - Anesthesia Hx Anesthesia Reactions: No - Suicidal Assessment Feels Threatened In Home Enviroment: No Family/Social History - Physician Review Nursing Documentation Reviewed: Yes Family/Social History: No Known Family HX Smoking Status: Never Smoked Hx Alcohol Use: No Hx Substance Use: No Hx Substance Use Treatment: No Allergies/Home Meds Allergies/Adverse Reactions: Allergies clopidogrel [From Plavix] Allergy (Verified 01/20/17 13:43) RASH Home Medications: Home Meds Medication Instructions Recorded Confirmed Bioflav,Lemon/Vit Bcomp,C 1 tab PO BID 07/07/16 01/19/17 [Lipo-Flavonoid Plus Caplet] Cholecalciferol (Vitamin D3) 2,000 unit PO DAILY 01/19/17 01/19/17 [Vitamin D3] Review of Systems - Physician Review All systems were reviewed & negative as marked: Yes - Review of Systems Constitutional: absent: Fevers, Night Sweats, Other (no weakness) Eyes: absent: Vision Changes ENT: Hearing Changes (ringing in ears bilaterally.) Respiratory: SOB Cardiovascular: absent: Chest Pain, Syncope (every time he bends over, feels like passing out but never does.) Gastrointestinal: absent: Abdominal Pain, Diarrhea, Nausea, Vomiting Musculoskeletal: absent: Neck Pain Neurological: Dizziness. absent: Headache Physical Exam Vital Signs Reviewed: Yes Blood Pressure: Normal Pulse: Regular Respiratory Rate: Normal Appearance: Positive for: Well-Appearing, Non-Toxic, Comfortable Pain Distress: None Mental Status: Positive for: Alert and Oriented X 3 - Systems Exam Head: Present: Atraumatic, Normocephalic Pupils: Present: PERRL Extroacular Muscles: Present: EOMI Conjunctiva: Present: Normal Mouth: Present: Moist Mucous Membranes Neck: Present: Normal Range of Motion Respiratory/Chest: Present: Clear to Auscultation, Good Air Exchange. No: Respiratory Distress, Accessory Muscle Use Cardiovascular: Present: Regular Rate and Rhythm, Murmurs, Normal S1, S2 Abdomen: No: Tenderness, Distention, Peritoneal Signs Back: Present: Normal Inspection Upper Extremity: Present: Normal Inspection. No: Cyanosis, Edema Lower Extremity: Present: Normal Inspection. No: Edema Neurological: Present: GCS=15, CN II-XII Intact, Speech Normal, Motor Func Grossly Intact, Normal Sensory Function, Normal Cerebellar Funct, Norm Deep Tendon Reflexes, Gait Normal, Memory Normal, Normal 2Pt Descrimination, Other (no nystagmus) Skin: Present: Warm, Dry, Normal Color. No: Rashes Psychiatric: Present: Alert, Oriented x 3, Normal Insight, Normal Concentration Medical Decision Making ED Course and Treatment: 02/01/18 16:03 Impression: 67 year old male with dizziness, ringing of ears, and Plan: -- EKG -- Labs -- Head CT -- Chest X-ray -- Urinalysis -- Nasal Cannula -- Reassess and disposition Progress Notes: EKG: Ordered, reviewed, and independently interpreted the EKG. Rate : 90 BPM Rhythm : NSR Interpretation : No ST-segment elevations or depressions, no T-wave inversions, normal intervals/access/intervals/QT, prolonged QRS with RBBB, Comparison : 01/20/2017 did not have RBBB. 02/01/18 17:33 Patient has been accepted by Dr. Juana Guerra, who called Dr. Ervin, whom recommended to have MRI ordered. Dr. Guerra also requests Dr. Gutierrez for cardiology consult. - Scribe Statement The provider has reviewed the documentation as recorded by the Adam Colvin Provider Scribe Provider Scribe Attestation: All medical record entries made by the Scribe were at my direction and personally dictated by me. I have reviewed the chart and agree that the record accurately reflects my personal performance of the history, physical exam, medical decision making, and the department course for this patient. I have also personally directed, reviewed, and agree with the discharge instructions and disposition. Disposition/Present on Arrival - Present on Arrival History of DVT/PE: No History of Uncontrolled Diabetes: No Urinary Catheter: No History Surgical Site Infection Following: None - Disposition Referrals: Ignacio Rios MD [Medical Doctor] - Follow up with primary
[2018-02-01 15:05] VITALS: BMI 24.9
[2018-02-01 16:02] LABS: BASO # 0.03 K/mm3 (0.0-2.0); BASO % 0.5 % (0.0-3.0); EOS # 0.1 (0.0-0.7); EOS % 0.8 % (1.5-5.0); GRAN # 3.87 (1.4-6.5); GRAN % 61.7 % (50.0-68.0); HEMOGLOBIN 14.8 g/dL (14.0-18.0); LYMPH # 1.8 (1.2-3.4); MEAN CELL VOLUME 92.6 fl (80.0-105.0); MEAN CORPUSCULAR HEMOGLOBIN 31.2 pg (25.0-35.0); MEAN CORPUSCULAR HGB CONC 33.6 g/dl (31.0-37.0); MEAN PLATELET VOLUME 10.6 fl (7.0-11.0); MONO # 0.5 (0.1-0.6); RBC 4.75 10^6/uL (3.5-6.1); RED CELL DISTRIBUTION WIDTH 12.3 % (11.5-14.5); WHITE BLOOD COUNT 6.3 10^3/uL (4.5-11.0)
[2018-02-01 16:12] LABS: INR 1.05; PARTIAL THROMBOPLASTIN TIME 29.7 Seconds (25.1-36.5)
--- NOTE | 2018-02-01 16:35 | CARD ---
APPROVED REPORT Date of service: 02/01/2018 EKG Measurement Heart [id number] <Conclusion> Normal sinus rhythm Right bundle branch block Left anterior fascicular block Bifascicular block Abnormal ECG
--- NOTE | 2018-02-01 17:04 | CT ---
Date of service: 02/01/2018 PROCEDURE: CT HEAD WITHOUT CONTRAST. HISTORY: dizziness COMPARISON: None available. TECHNIQUE: Axial computed tomography images were obtained through the head/brain without intravenous contrast. Supplemental Coronal and Sagittal projections created and reviewed. Radiation dose: Total exam DLP = 857.74 mGy-cm. This CT exam was performed using one or more of the following dose reduction techniques: Automated exposure control, adjustment of the mA and/or kV according to patient size, and/or use of iterative reconstruction technique. FINDINGS: HEMORRHAGE: No intracranial hemorrhage. BRAIN: No mass effect or edema. Cortical atrophy and chronic microvascular ischemic change. VENTRICLES: Unremarkable. No hydrocephalus. CALVARIUM: Unremarkable. PARANASAL SINUSES: Unremarkable as visualized. No significant inflammatory changes. MASTOID AIR CELLS: Unremarkable as visualized. No inflammatory changes. OTHER FINDINGS: Mild tonsillar ectopia. IMPRESSION: No acute intracranial abnormalities. No significant findings to account for the clinical presentation.
--- NOTE | 2018-02-01 17:05 | RAD ---
Date of service: 02/01/2018 PROCEDURE: CHEST RADIOGRAPH, 1 VIEW HISTORY: dizziness COMPARISON: Chest radiograph dated 01/20/2017. FINDINGS: LUNGS: Clear. PLEURA: No pneumothorax or pleural fluid seen. CARDIOVASCULAR: Aortic atherosclerotic calcifications. Cardiomediastinal silhouette stably enlarged. OSSEOUS STRUCTURES: Unchanged. VISUALIZED UPPER ABDOMEN: Normal. OTHER FINDINGS: None. IMPRESSION: No active disease.
[2018-02-01 19:53] LABS: ALB/GLOB RATIO 1.5 (1.1-1.8); ALBUMIN 4.1 g/dL (3.0-4.8); ALT/SGPT 25 U/L (7-56); AST/SGOT 24 U/L (17-59); BLOOD UREA NITROGEN 13 mg/dL (7-21); CALCIUM 9.1 mg/dL (8.4-10.5); GFR NON-AFRICAN AMERICAN > 60
[2018-02-01 19:58] LABS: B-TYPE NATRIURETIC PEPTIDE 113 pg/mL (0-450); TROPONIN I 0.07 ng/mL
--- NOTE | 2018-02-01 23:37 | HP ---
HISTORY OF PRESENT ILLNESS: This 67-year-old male presented to the office for the first time today with a 6-month history of having episodes of dizziness and near syncope. He states that a year or two ago he was seen by Ear, Nose, and Throat for ringing in his ears and was placed on Lipo-Flavonoid. He also states that in his past history he has a stent placed by his still cleaner on the LAD, and he states that he is currently taking Effient 10 mg daily, Crestor 10 mg daily, Lipo-Flavonoid Plus one caplet b.i.d. and baby aspirin. He states that he has been having these episodes for the past 6 months and has not sought any evaluation. He states that he did discuss it with his still cleaner. ALLERGY HISTORY: PLAVIX. SOCIAL HISTORY: He denies any use of alcohol or drugs. REVIEW OF SYSTEMS: His 10 systems are reviewed, pertinent findings as stated in the physical. He was referred to [facility] for further eval as he noted that in attempting to bend forward he felt dizzy and sycnopal. PHYSICAL EXAMINATION GENERAL: He is alert and oriented x3. VITAL SIGNS: His temp was reported at 98.4, his pulse at 92, his blood pressure 127/75, his oxygen sat is reported at 97%on room air with a respiratory rate of 17. NECK: Supple. LUNGS: Clear. HEART: S1 and S2. ABDOMEN: Soft, scaphoid, positive bowel sounds. EXTREMITIES: Show no evidence of edema. DIAGNOSTIC DATA: His EKG shows sinus rhythm with a right bundle-branch block, left anterior fascicular block and bifascicular block. In comparison to prior EKG in the system from a year ago, the right bundle-branch block is new. He had a chest x-ray which is reported as showing cardiomediastinal silhouette stably enlarged. No active disease. A CAT scan of his head is reported as showing no mass effect or edema, cortical atrophy, chronic microvascular ischemic changes. No acute intracranial abnormalities. LABORATORY DATA: Shows WBC of 6.3, RBC of 4.75, hemoglobin 14.8, hematocrit 44, and platelet count 223. PT is 12 with INR 1.05, PTT is 29.7. Chemistries are currently pending. PLAN: Discussion with the emergency room physician the patient, and his , and Neurology and Cardiology, we recommended that the patient be admitted and he have a neurological and cardiac evaluation. Cardiology recommends holding his anticoagulation therapy at this time. Juana Guerra MD
[2018-02-02 08:26] LABS: INR 1.07; PROTHROMBIN TIME 12.3 SECONDS (9.4-12.5)
--- NOTE | 2018-02-02 13:50 | CON ---
DATE: 02/02/2018 HISTORY: The patient is a the patient is a 67-year-old male, who presents with 1 month of exertional shortness of breath. He came to the emergency room after feeling dizzy after bending over. PAST MEDICAL HISTORY: The patient's past medical history is notable for history of hypertension and hypercholesterolemia. A stress test was abnormal. The patient underwent a PTCA and stent of an LAD in 01/2017, at that time his ejection fraction was normal. However, during cardiac rehab, he is able to exercise more than 30 minutes without symptoms. He denies angina. No diabetes mellitus. SOCIAL HISTORY: Negative smoker REVIEW OF SYSTEMS: A 14-point review of systems is reviewed in detail. No additional symptoms other than above. PHYSICAL EXAMINATION: VITAL SIGNS: Blood pressure is 128/85, heart rate is in the 80s. NECK: Negative JVD. LUNGS: Without rales. HEART: Reveals S1, S2. EXTREMITIES: Without edema. IMAGING DATA: EKG shows normal sinus rhythm with right bundle-branch block. LABORATORY DATA: Glucose is 165, hemoglobin is 14. IMPRESSION: 1. Dizziness. 2. Coronary artery disease. 3. History of percutaneous transluminal coronary angioplasty and stent. 4. Borderline elevated troponins with questionable non-ST elevation myocardial infarction. 5. Coronary artery disease. 6. Hypertension. 7. Hypercholesterolemia. 8. Diabetes mellitus. PLAN: Given these findings, we will continue on aspirin and Effient. Repeat troponin has been ordered. An echocardiogram has been ordered. If his troponins remain elevated, we may need to proceed to cardiac catheterization. Moody Gutierrez MD
--- NOTE | 2018-02-02 14:24 | CP.PCM.PCO ---
Physician Communication Note - Physician Communication Note Physician Communication Note: cta of head orderd. will need outpt tilt table test. meclzine prn.
--- NOTE | 2018-02-02 15:23 | CT ---
Date of service: 02/02/2018 PROCEDURE: CT Angiography of the neck with contrast HISTORY: dizziness. COMPARISON: None. TECHNIQUE: Contiguous axial images of the neck were obtained from the level of the skull-base to the superior mediastinum in the arteriographic phase of enhancement. Coronal and sagittal reformats or also generated. IV contrast dose: Radiation dose: Total exam DLP = 481.63 mGy-cm. This CT exam was performed using one or more of the following dose reduction techniques: Automated exposure control, adjustment of the mA and/or kV according to patient size, and/or use of iterative reconstruction technique. FINDINGS: RIGHT CAROTID ARTERIES: Common Carotid Artery: Normal. Carotid Bifurcation: Normal. Internal Carotid Artery:Normal. External Carotid Artery (proximal branches): Normal. LEFT CAROTID ARTERIES: Common Carotid Artery: Normal. Carotid Bifurcation: Normal. Internal Carotid Artery:Normal. External Carotid Artery (proximal branches): Normal. VERTEBRAL ARTERIES: Right Vertebral Artery: Normal. Left Vertebral Artery: Normal. OTHER FINDINGS: no aortic atherosclerotic calcification or mural plaque present. IMPRESSION: No evidence of stenosis PROCEDURE: CT Angiography of the Brain. HISTORY: dizziness. COMPARISON: None available. TECHNIQUE: CT angiography of the intracranial arteries was performed. Coronal and sagittal maximum intensity projection reformated images were generated. Radiation dose: Total exam DLP = 481.63 mGy-cm. This CT exam was performed using one or more of the following dose reduction techniques: Automated exposure control, adjustment of the mA and/or kV according to patient size, and/or use of iterative reconstruction technique. FINDINGS: INTERNAL CEREBRAL ARTERIES: Unremarkable. The skull base, petrous, cavernous and supraclinoid segments are bilaterally widely patent. ANTERIOR CEREBRAL ARTERIES: Unremarkable. A1 and A2 segments are widely patent. Smaller distal branches unremarkable, as visualized. MIDDLE CEREBRAL ARTERIES: Unremarkable. M1 and M2 segments are widely patent. Perisylvian branches grossly symmetric. POSTERIOR CIRCULATION: Basilar Artery: Unremarkable. Distal Vertebral Arteries: Unremarkable. Posterior Cerebral Arteries: Unremarkable. Posterior Inferior Cerebellar Arteries: Unremarkable. ANEURYSM/ VASCULAR MALFORMATIONS: None. OTHER FINDINGS: None. IMPRESSION: Unremarkable CT Angiography of the Brain.
--- NOTE | 2018-02-02 17:32 | CARD ---
APPROVED REPORT Date of service: 02/02/2018 EXAM: Two-dimensional and M-mode echocardiogram with Doppler and color Doppler. INDICATION DIZZINESS 2D DIMENSIONS Left Atrium (2D)3.6 (1.6-4.0cm)IVSd1.3 (0.7-1.1cm) LVDd5.1 (3.9-5.9cm)PWd1.4 (0.7-1.1cm) LVDs3.8 (2.5-4.0cm)FS (%) 26.2 % LVEF (%)51.2 (>50%) M-Mode DIMENSIONS Aortic Root3.60 (2.2-3.7cm)Aortic Cusp Exc.2.10 (1.5-2.0cm) Aortic Valve AoV Peak Bjvpercq633.0cm/Deonte Peak GR.6mmHg Mitral Valve MV E Zrmrusui55.8cm/sMV A Mgoysnml94.5cm/sE/A ratio0.7 TDI E/Lateral E'0.0E/Medial E'0.0 Tricuspid Valve TR Peak Xchedjio085cp/sRAP [id number] Peak Gr.17mmHg [id number] LEFT VENTRICLE The left ventricle is normal size. There is normal left ventricular wall thickness. The left ventricular function is normal. The left ventricular ejection fraction is within the normal range. There is normal LV segmental wall motion. Transmitral Doppler flow pattern is Grade I-abnormal relaxation pattern. RIGHT VENTRICLE The right ventricle is normal size. There is normal right ventricular wall thickness. The right ventricular systolic function is normal. ATRIA The left atrium size is normal. The right atrium size is normal. AORTIC VALVE The aortic valve is mildly thickened. No aortic regurgitation is present. There is no aortic valvular stenosis. MITRAL VALVE The mitral valve is mildly thickened. Mitral regurgitation is trace. There is no mitral valve stenosis. TRICUSPID VALVE The tricuspid valve is normal in structure. There is trace tricuspid regurgitation. PULMONIC VALVE The pulmonary valve is normal in structure. There is no pulmonic valvular regurgitation. GREAT VESSELS The aortic root is normal in size. PERICARDIAL EFFUSION There is no pericardial effusion. <Conclusion> The left ventricle is normal size. There is normal left ventricular wall thickness. The left ventricular function is normal. The left ventricular ejection fraction is within the normal range. There is normal LV segmental wall motion. Transmitral Doppler flow pattern is Grade I-abnormal relaxation pattern.
--- NOTE | 2018-02-02 18:28 | CON ---
DATE: 02/02/2018 HISTORY OF PRESENT ILLNESS: This is a 67-year-old white male, with past medical history of hyperlipidemia, coronary artery disease, hypertension and came to the doctor's office and had an episode of dizziness and syncopal episode which has been going on for several months. The patient when he stands up sometimes feels dizzy. Called to evaluate the patient. PAST MEDICAL HISTORY: As above. SOCIAL HISTORY: Does not smoke, does not drink . ALLERGIC: PLAVIX. REVIEW OF SYSTEMS: The patient is sitting and having his meal. PHYSICAL EXAMINATION: HEENT: Normocephalic, atraumatic. NECK: Supple. NEUROLOGIC: Alert, awake, oriented x3. No aphasia. Cranial nerves II through XII were tested. Pupils reactive. EOM intact. Visual field full. No facial asymmetry. Tongue midline. Motor examination: Moves all the extremities equally. Tone normal. Deep tendon reflexes 1+. Both plantars are downgoing. Sensory appears intact. Cerebellar, gait normal. CAT scan of the head did not show any bleed or infarct. CAT scan was normal, and workup in progress. PLAN: Continue present management. We will follow up. 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
--- NOTE | 2018-02-02 20:27 | PN ---
DATE: 02/02/2018 SUBJECTIVE: A 67-year-old male on telemetry admitted because of near syncopal episode with a history of orthostatic blood pressures and coronary artery disease. PHYSICAL EXAMINATION GENERAL: The patient is alert and oriented x3. VITAL SIGNS: Temp of 98, his pulse is 75, his blood pressure is 126/78. NECK: Supple. LUNGS: Clear. HEART: S1 and S2 rhythm. ABDOMEN: Soft with positive bowel sounds. EXTREMITIES: Show no evidence of edema. NEUROLOGIC: He is alert and oriented x3. LABORATORY DATA: His troponins are mildly elevated. We are waiting a cardiac evaluation and he has been scheduled for an echocardiogram. He is also being waiting for a Neurology consult. He had an MRA, the results are pending. ASSESSMENT: 1. He has borderline elevated troponins with questionable non-ST elevation mycoardial infarction. 2. diabetes. 3. Hypertension. 4. Coronary artery disease. 5. History of angioplasty and stent. PLAN: We will continue to monitor the patient closely. Follow up his troponins and await input from the individual consultants in Neurology and Cardiology. Clinical findings today have been discussed with the patient and the family. Juana Guerra MD
[2018-02-03] MEDS ORDERED: DiphenhydrAMINE 50 mg/ml Inj IVP ONE (00:31)
[2018-02-03] MEDS ORDERED: DiphenhydrAMINE 50 mg/ml Inj IVP STA (00:39)
[2018-02-03 00:57] LABS: BASO # 0.01 K/mm3 (0.0-2.0); BASO % 0.1 % (0.0-3.0); EOS # 0.1 (0.0-0.7); EOS % 0.9 % (1.5-5.0); GRAN # 6.81 (1.4-6.5); HEMOGLOBIN 15.7 g/dL (14.0-18.0); LYMPH # 1.4 (1.2-3.4); LYMPH % 16.5 % (22.0-35.0); MEAN CELL VOLUME 92.6 fl (80.0-105.0); MEAN CORPUSCULAR HEMOGLOBIN 31.5 pg (25.0-35.0); MEAN CORPUSCULAR HGB CONC 34.1 g/dl (31.0-37.0); MEAN PLATELET VOLUME 10.4 fl (7.0-11.0); MONO # 0.2 (0.1-0.6); MONO % 2.5 % (1.0-6.0); RBC 4.98 10^6/uL (3.5-6.1); RED CELL DISTRIBUTION WIDTH 12.5 % (11.5-14.5); WHITE BLOOD COUNT 8.5 10^3/uL (4.5-11.0)
--- NOTE | 2018-02-03 01:01 | CP.PCM.PCO ---
Addendum entered and electronically signed by Kelly Menchaca MD 02/03/18 02:43: Pt was also given 1 dose of Pepcid 40 mg IVP. Addendum entered and electronically signed by Josep Ramos DO 02/03/18 01:46: DISREGARD PLAN AT BOTTOM ; PLEASE FOLLOW ADDENDED PLAN P: Stat CBC w/ diff - evaluate for eosinophila Stat Benadryl 50mg IVP x1; Followed by repeat 25 mg benadryl IVP Q6H x2 Stat Solumedrol 125mg IVP x1 Followed by Solumedrol 40mg IVP Q8H x2 Reassess pt in 1-2; continue monitoring on tele Original Note: <Josep Ramos - Last Filed: 02/03/18 00:52> Physician Communication Note - Physician Communication Note Physician Communication Note: Allergic RXN Addendum Addendum: 02/03/18 00:53 S: Patient had c/o of itching, burning, rash, throughout body at 1230 No respiratory complaints voiced Medications and diet reviewed; Patient received antivert at 6; dinner given at 6 O: Vitals 141/82 Hr 106 97.6F O2 Sat 91% On exam diffuse rash on UE/LE as well as back rash is erthematous blanching widespread no particular distribution pattern; generalized erythematous maculopapular rash Confluent in some places No wheezing, rales, ronchi, stridor on exam No angioedema of the head/neck No swelling/ inflammation of throat / mouth noted. A: Allergic reaction with urticarial rash P: Stat CBC w/ diff - evaluate for eosinophila Stat Benadryl 50mg IVP x1; Followed by repeat benadryl in 8 hours Stat Solumedrol 125mg x1 Followed by Solumedrol 40mg Q6 x3 Reassess pt in 1-2; continue monitoring on tele Will notify PMD Dr. Guerra 02/03/18 01:06 <Kelly Menchaca - Last Filed: 02/03/18 02:16> Attending/Attestation - Attestation I have personally seen and examined this patient.: Yes I have fully participated in the care of the patient.: Yes I have reviewed all pertinent clinical information: Yes Notes (Text): 02/03/18 02:14 Pt seen with resident by bedside Case discussed. Agree with documentation and orders placed.
[2018-02-03] MEDS: MethylPREDNISolone 40 mg Vial IVP SCH ×2 (08:46→15:12)
[2018-02-03] MEDS: DiphenhydrAMINE 50 mg/ml Inj IVP SCH ×2 (08:50→13:09)
[2018-02-03 09:18] LABS: ALB/GLOB RATIO 1.7 (1.1-1.8); ALBUMIN 4.2 g/dL (3.0-4.8); ALT/SGPT 30 U/L (7-56); AST/SGOT 20 U/L (17-59); BLOOD UREA NITROGEN 22 mg/dL (7-21); CALCIUM 9.5 mg/dL (8.4-10.5); GFR NON-AFRICAN AMERICAN > 60
[2018-02-03] MEDS: Sodium Chloride 0.9% 1,000 ML IV SCH (14:00)
--- NOTE | 2018-02-03 14:57 | PN ---
DATE: 02/03/2018 CARDIOLOGY FOLLOWUP SUBJECTIVE: The patient developed a diffuse rash with pruritus yesterday. He did receive contrast during his CT scan. Currently, the patient is awake, alert. No shortness of breath. No chest pain. PHYSICAL EXAMINATION: VITAL SIGNS: Blood pressure is 109/60, heart rates in the 80s. NECK: Negative JVD. LUNGS: Without rales. HEART: Reveals S1, S2. EXTREMITIES: Without edema. The patient has diffuse rash throughout his upper chest and arms. LABORATORY DATA: Glucose is 167. Hemoglobin is 15.7. IMPRESSION: 1. Allergy to CT contrast. 2. Coronary artery disease. 3. History of percutaneous transluminal coronary angioplasty and stent. 4. Hypercholesterolemia. Given these findings, we will continue the patient on the aspirin and Effient. We will cancel his cardiac catheterization today given his allergy. We will continue him on steroids and H2 blockers. Moody Gutierrez MD
[2018-02-03 15:55] LABS: URINE BILIRUBIN NEGATIVE (NEGATIVE); URINE BLOOD NEGATIVE (NEGATIVE); URINE GLUCOSE (UA) NEGATIVE (NEGATIVE); URINE LEUKOCYTE ESTERASE NEGATIVE Leu/uL (NEGATIVE); URINE PROTEIN NEGATIVE mg/dL (<30 mg/dL); URINE UROBILINOGEN 0.2 E.U./dL (<1 E.U./dL)
[2018-02-03 16:05] LABS: URINE APPEARANCE CLEAR (CLEAR); URINE COLOR YELLOW (YELLOW)
--- NOTE | 2018-02-03 17:14 | PN ---
DATE: 02/03/2018 SUBJECTIVE: A 67-year-old male. This morning the nurses state that during the night, the patient had what appeared to be an allergic reaction and was treated by the hospitalist and resident. This morning, the patient says that he is feeling a bit better and noticed a rash with itching in the evening hours. PHYSICAL EXAMINATION: VITAL SIGNS: Currently, his temperature is 98.7, his pulse is 109, blood pressure is 119/75 with a respiratory rate of 20, and his oxygen sat is 95% on room air. GENERAL: He is alert and oriented x3. NECK: Supple. LUNGS: Clear. HEART: S1 and S2 rhythm. ABDOMEN: Soft with positive bowel sounds. EXTREMITIES: Show mild rash on the arms and back and ankle area. He does state that he is feeling a bit better since receiving the treatment. LABORATORY DATA: Showed WBC of 8.5, RBC 4.98, hemoglobin 15.7, hematocrit 46.1, and platelet count 208. Chemistry shows sodium 137, potassium 4.3, chloride 105, CO2 of 22. BUN 22, creatinine 1.1. Random blood sugar is 167. LFTs are normal. ASSESSMENT AND PLAN: 1. Allergic reaction. The patient received treatment by hospitalist and resident. Currently appears to be more comfortable. We will get followup labs and renal consult. 2. We will discuss anticipated planned cardiac cath with Dr. Gutierrez. 3. Neurology following the patient for his vertigo symptomatology. The CT angiogram is pending. We will await their input. 4. As per Cardiology, we will continue his Effient and Ecotrin. 5. Neurology has placed Antivert on hold at this time. Juana Guerra MD
--- NOTE | 2018-02-04 00:56 | CON ---
DATE: 02/03/2018 REASON FOR CONSULTATION: Rash, acute kidney injury. HISTORY OF PRESENT ILLNESS: A 67-year-old male previously unknown to me. The patient admitted on the with complaints of dizziness, lightheadedness, and presyncope every time he bends down and stands up. He also complains of ringing in his ears. He was started on Lipo-Flavonoid for his symptoms. He had a CT angiogram of his neck with contrast. The CT angiogram was unremarkable. The patient developed a rash with intense pruritus and itching, erythematous on his forearms. The patient recollects that he had a similar rash a year ago when he received contrast for his cardiac catheterization. The patient received Benadryl and Solu-Medrol last night. He also received another dose of Solu-Medrol and Benadryl this afternoon. He reports that Benadryl does not agree with him, it causes palpitations. Also, his creatinine harvey from 0.9-1.1, hence consultation is requested. PAST MEDICAL AND SURGICAL HISTORY: CAD, PTCA and stent. He denies any history of hypertension, he denies any history of diabetes. He denies any other operations. FAMILY HISTORY: Noncontributory. SOCIAL HISTORY: No smoking, no alcohol use, no IV drug abuse. ALLERGIES: PLAVIX/CONTRAST/BENADRYL. REVIEW OF SYSTEMS: All systems are reviewed, pertinent positives as mentioned in history of presenting illness, rest is unremarkable. PHYSICAL EXAMINATION: GENERAL: Elderly male sitting in bed, in no acute distress at present. VITAL SIGNS: Blood pressure 119/75, heart rate 109, respiratory rate 20, temperature 98.7. HEENT: Normocephalic, atraumatic, positive pallor. NECK: Supple, no JVD. LUNGS: Bilateral equal air entry, bilateral equal expansion, no rales. CARDIAC: S1 and S2, regular rate and rhythm, no murmur, no rub. ABDOMEN: Soft, nondistended, nontender, bowel sounds present. EXTREMITIES: Erythematous rash on the forearm. INTAKE AND OUTPUT: 1680/1600. LABORATORY DATA: WBC 8.5, hemoglobin 15.7, hematocrit 46, platelets 208, polys 80%, eosinophils 0.9%. Sodium 137, potassium 4.3, chloride 105, CO2 of 22, BUN 22, creatinine 1.1, glucose 167, calcium 9.5, AST 20, ALT 30, and albumin 4.2. CURRENT MEDICATIONS: Antivert 12.5 b.i.d., aspirin, Effient 10 mg daily, Solu-Medrol 40 IV every 8 hours. ASSESSMENT AND PLAN: 1. CONTRAST ALLERGY. 2. Coronary artery disease, history of percutaneous transluminal coronary angioplasty and stent 1 year ago. 3. Mild acute kidney injury, creatinine rising from 0.9-1.1. 4. Dizziness and lightheadedness when he bends down and stands up, ?orthostatic hypotension versus cervical spine disease. PLAN: 1. Check urinalysis. 2. Check urine eosinophils. 3. Monitor creatinine. 4. Prophylactic steroids if cardiac cath is being planned. 5. IV fluids lilian procedure. 6. Case discussed with Dr. Guerra. Thank you for the courtesy of this consultation. We will follow this patient with you. Michelle Frank MD [facility]
[2018-02-04 06:25] LABS: BLOOD UREA NITROGEN 22 mg/dL (7-21); CALCIUM 9.1 mg/dL (8.4-10.5); GFR NON-AFRICAN AMERICAN > 60
[2018-02-04 06:38] VITALS: RESP 20; O2SAT 100
--- NOTE | 2018-02-04 08:19 | PN ---
DATE: 02/04/2018 CARDIOLOGY FOLLOWUP SUBJECTIVE: The patient's pruritus is much improved. There is no shortness of breath on minimal exertion. No angina. PHYSICAL EXAMINATION: VITAL SIGNS: The blood pressure is 123/84, the heart rates in the 70s. NECK: Negative JVD. LUNGS: Without rales. HEART: Reveals S1, S2. EXTREMITIES: Without edema. LABORATORY DATA: Chemistries, BUN and creatinine unremarkable. Hemoglobin is unchanged. IMPRESSION: 1. CONTRAST ALLERGY rash, which is improved after steroids. 2. Dyspnea, which is improved. 3. Borderline elevated troponins. 4. History of percutaneous transluminal coronary angioplasty and stent. 5. Hypercholesterolemia. Given these findings, the patient can be discharged today. The patient will follow up with me as an outpatient next week. Depending on resolution of his rash, we will plan on an outpatient evaluation for his recent exertional dyspnea. Moody Gutierrez MD
[2018-02-04] MEDS: Sodium Chloride 0.9% 1,000 ML IV SCH (10:41)
[2018-02-04 11:59] VITALS: BP 124/80; PULSE 86; TEMP 98
--- NOTE | 2018-02-04 14:01 | PN ---
DATE: 02/04/2018 SUBJECTIVE: The patient is seen sitting in a chair. He is awake, he is alert, he is comfortable. He denies any dizziness. He denies any lightheadedness. He denies any chest tightness. PHYSICAL EXAMINATION: GENERAL: Elderly male sitting in a chair. VITAL SIGNS: Blood pressure 123/84, heart rate 72, respiratory rate 20, temperature 98.6. Vital signs in three positions done yesterday evening, lying blood pressure 103/55, sitting 109/72, standing 112/74. NECK: Supple, no JVD. LUNGS: Bilateral equal air entry, bilateral equal expansion, no rales. CARDIAC: S1, S2, regular rate and rhythm, no murmur, no rub. ABDOMEN: Soft, nondistended, nontender, bowel sounds present. EXTREMITIES: No lower extremity edema. INTAKE AND OUTPUT: Not charted. LABORATORY DATA: WBC 8.5, hemoglobin 15.7, hematocrit 46, platelets 208. Sodium 137, potassium 4.5, chloride 105, CO2 of 24, BUN 22, creatinine 0.9, glucose 131, calcium 9.1. Urinalysis yellow, clear, pH 6, specific gravity less than 1.005. Protein negative, glucose negative, leukocyte esterase negative. Urine eosinophils negative. CURRENT MEDICATIONS: Antivert, aspirin, Effient ASSESSMENT AND PLAN: 1. Dizziness/lightheadedness. No evidence of postural hypotension. 2. Acute kidney injury, mild prerenal azotemia, resolved. 3. History of coronary artery disease/percutaneous transluminal coronary angioplasty and stents. PLAN: The patient is stable from the renal standpoint. No objection to discharge. Michelle Frank MD
== END 2018-02-04 13:47 | disposition home or self-care (01) | DRG 149 ==
LOC: ED 14:24 → ERH 18:07 → 2RNO 22:03 → OBSVTOIN 02-02 16:21
PROVIDERS: ADMIT Internal Medicine; ATTEND Internal Medicine
DX: R42 Dizziness and giddiness (principal); N17.9 Acute kidney failure, unspecified; R55 Syncope and collapse; I10 Essential (primary) hypertension; I25.10 Atherosclerotic heart disease of native coronary artery without angina pectoris; E11.9 Type 2 diabetes mellitus without complications; L50.0 Allergic urticaria; T50.8X5A Adverse effect of diagnostic agents, initial encounter; K21.9 Gastro-esophageal reflux disease without esophagitis; E78.00 Pure hypercholesterolemia, unspecified; R74.8 Abnormal levels of other serum enzymes; Z95.5 Presence of coronary angioplasty implant and graft